=== PATIENT | female | born 1985 | race Caucasian/White ===

== ENCOUNTER 2018-11-10 16:43 | Emergency (ER) | payer BC, OTHER ==
[~2018-11-10] VITALS: Ht 154.9 cm; Wt 56.7 kg
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
[2018-11-10] MEDS ORDERED: IBUPROFEN 600 MG TABLET PO ONE (17:45)
[2018-11-10] MEDS ORDERED: IBUPROFEN 600 MG TABLET ONE ×2 (19:19→19:21)
--- NOTE | 2018-11-10 19:58 | NUR ---
Patient discharged to home in stable conditon WITH FAMILY TAKING PATIENT HOME. Written and verbal after care instructions given. Patient verbalizes understanding of instructions. WALKED OUT OF ER WITH NO DISTRESS NOTED
[2018-11-10 19:59] VITALS: BP 125/76
== END 2018-11-10 19:59 | disposition home or self-care (01) ==
LOC: ER 16:45
DX: S29.9XXA Unspecified injury of thorax, initial encounter (principal); V49.9XXA Car occupant (driver) (passenger) injured in unspecified traffic accident, initial encounter; Y93.89 Activity, other specified; Y92.89 Other specified places as the place of occurrence of the external cause; Y99.8 Other external cause status
CPT/HCPCS: 71120; A4663

== ENCOUNTER 2019-01-10 10:00 | Emergency (ER) | payer OTHER ==
[~2019-01-10] VITALS: Ht 175.3 cm; Wt 95.3 kg
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
--- NOTE | 2019-01-10 10:33 | NUR ---
Patient discharged to home in stable conditon. Written and verbal after care instructions given. Patient verbalizes understanding of instructions. ALL BELONGINGS W/ PT. PT SELF-AMBUALTED W/O DIFFICULTY.
[2019-01-10 10:34] VITALS: BP 122/72
== END 2019-01-10 10:34 | disposition home or self-care (01) ==
LOC: ER 10:01
DX: R21 Rash and other nonspecific skin eruption (principal)
CPT/HCPCS: A4663

== ENCOUNTER 2020-01-29 15:38 | Emergency (ER) | payer OTHER ==
[~2020-01-29] VITALS: Ht 154.9 cm; Wt 53.1 kg
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
[2020-01-29] MEDS ORDERED: KETOROLAC TROMETHAMINE 30 MG INJ IM ONE (16:15)
[2020-01-29] MEDS ORDERED: ACETAMINOPHEN ES 500 MG TABLET PO ONE (16:15)
[2020-01-29] MEDS ORDERED: KETOROLAC TROMETHAMINE 30 MG INJ ONE (16:21)
[2020-01-29] MEDS ORDERED: ACETAMINOPHEN ES 500 MG TABLET ONE (16:21)
[2020-01-29 16:29] LABS: *URINE HCG, QUAL NEGATIVE (NEGATIVE)
[2020-01-29 16:37] LABS: BASOPHILS % (AUTO) 0.5 % (0.0-2.0); EOSINOPHILS % (AUTO) 0.7 % (0.0-7.0); HEMATOCRIT 39.6 % (31.2-41.9); HEMOGLOBIN 12.9 g/dL (10.9-14.3); LYMPHOCYTES # (AUTO) 1.3 K/uL (20.0-40.0); LYMPHOCYTES % (AUTO) 22.7 % (20.5-51.5); MEAN CORPUSCULAR HEMOGLOBIN 30.4 uug (24.7-32.8); MEAN CORPUSCULAR HGB CONC 33 g/dL (32.3-35.6); MEAN CORPUSCULAR VOLUME 93.3 fL (75.5-95.3); MONOCYTES # (AUTO) 0.4 K/uL (2.0-10.0); MONOCYTES % (AUTO) 7.7 % (0.0-11.0); NEUTROPHILS # (AUTO) 3.9 K/uL (1.8-8.9); NEUTROPHILS % (AUTO) 68.4 % (38.5-71.5); PLATELET COUNT (AUTO) 210 K/uL (179-408); RED BLOOD CELL COUNT(AUTO) 4.25 MIL/uL (3.63-4.92); WHITE BLOOD COUNT (AUTO) 5.7 K/uL (3.8-11.8)
[2020-01-29 17:17] LABS: CREATININE 0.7 mg/dL (0.6-1.3); POTASSIUM 3.9 mmol/L (3.5-5.1)
--- NOTE | 2020-01-29 17:21 | NUR ---
PATIENT STATES HEADACHE HAS DIMINISHED.
[2020-01-29 17:22] LABS: BILIRUBIN,DIRECT 0.1 mg/dL (0.0-0.2); BILIRUBIN,TOTAL 0.5 mg/dL (0.2-1.0)
--- NOTE | 2020-01-29 17:38 | NUR ---
DC AND FOLLOW UP INSTRUCTIONS GIVEN AND EXPLAINED TO PATIENT WHO STATES SHE UNDERSTANDS ALL INSTRUCTIONS.
== END 2020-01-29 17:43 | disposition home or self-care (01) ==
LOC: ER 15:41
DX: G44.209 Tension-type headache, unspecified, not intractable (principal); Z87.828 Personal history of other (healed) physical injury and trauma
CPT/HCPCS: 36415; 70450; 80048; 80076; 84703; 85025; 96372; 99284; J1885; A4663; A9150

== ENCOUNTER 2020-05-01 21:06 | Emergency (ER) | payer OTHER ==
[~2020-05-01] VITALS: Ht 154.9 cm; Wt 49.9 kg
[2020-05-01] MEDS ORDERED: ONDANSETRON 4 MG/2 ML VIAL ONE ×2 (22:07→23:04)
[2020-05-01] MEDS ORDERED: PANTOPRAZOLE SODIUM 40 MG VIAL ONE (22:07)
[2020-05-01 22:11] LABS: BASOPHILS % (AUTO) 0.3 % (0.0-2.0); EOSINOPHILS # (AUTO) 0.1 K/uL (0.0-0.7); EOSINOPHILS % (AUTO) 0.7 % (0.0-7.0); HEMATOCRIT 36.5 % (31.2-41.9); HEMOGLOBIN 12.4 g/dL (10.9-14.3); LYMPHOCYTES # (AUTO) 2.3 K/uL (20.0-40.0); LYMPHOCYTES % (AUTO) 28.9 % (20.5-51.5); MEAN CORPUSCULAR HEMOGLOBIN 31.5 uug (24.7-32.8); MEAN CORPUSCULAR HGB CONC 34 g/dL (32.3-35.6); MEAN CORPUSCULAR VOLUME 92.4 fL (75.5-95.3); MONOCYTES # (AUTO) 0.6 K/uL (2.0-10.0); MONOCYTES % (AUTO) 7.7 % (0.0-11.0); NEUTROPHILS # (AUTO) 4.9 K/uL (1.8-8.9); NEUTROPHILS % (AUTO) 62.4 % (38.5-71.5); PLATELET COUNT (AUTO) 174 K/uL (179-408); RED BLOOD CELL COUNT(AUTO) 3.95 MIL/uL (3.63-4.92); WHITE BLOOD COUNT (AUTO) 7.9 K/uL (3.8-11.8)
[2020-05-01 22:13] LABS: CARBON DIOXIDE 27 mmol/L (21-32); CHLORIDE 104 mmol/L (98-107); CREATININE 0.8 mg/dL (0.6-1.3); GLUCOSE 116 mg/dL (74-106); POTASSIUM 3.3 mmol/L (3.5-5.1); UREA NITROGEN, BLOOD 15 mg/dL (7-18)
[2020-05-01] MEDS ORDERED: PANTOPRAZOLE SODIUM 40 MG VIAL IV ONE (22:15)
[2020-05-01] MEDS ORDERED: MECLIZINE HCL 25 MG TABLET PO ONE (22:15)
[2020-05-01] MEDS ORDERED: IV NORMAL SALINE 1000 ML BAG IV ONE (22:15)
[2020-05-01] MEDS ORDERED: ONDANSETRON 4 MG/2 ML VIAL IV ONE ×2 (22:15→23:00)
[2020-05-01 22:19] LABS: ALANINE AMINOTRANSFERASE 21 U/L (14-59); ALKALINE PHOSPHATASE 41 U/L (50-136); ASPARTATE AMINOTRANSFERASE 16 U/L (15-37); BILIRUBIN,DIRECT 0.1 mg/dL (0.0-0.2); BILIRUBIN,TOTAL 0.5 mg/dL (0.2-1.0); TOTAL PROTEIN, SERUM 7.3 g/dL (6.4-8.2)
[2020-05-01] MEDS ORDERED: MECLIZINE HCL 25 MG TABLET ONE (22:31)
--- NOTE | 2020-05-01 23:02 | NUR ---
Patient states after medication dizzines has not improved, had 2 episode of vomiting at this time Dr Holman into re eval patient.
--- NOTE | 2020-05-01 23:30 | NUR ---
Patient states nausea and dizzines has not improved with 2nd dose of medication. Dr Holman into re eval patient.
[2020-05-01] MEDS ORDERED: diphenhydrAMINE 50 MG/1 ML VIAL ONE (23:35)
[2020-05-01] MEDS ORDERED: METOCLOPRAMIDE HCL 10 MG/2 ML VIAL ONE (23:36)
[2020-05-01] MEDS ORDERED: diphenhydrAMINE 50 MG/1 ML VIAL IV ONE (23:45)
[2020-05-01] MEDS ORDERED: METOCLOPRAMIDE HCL 10 MG/2 ML VIAL IV ONE (23:45)
--- NOTE | 2020-05-02 00:12 | NUR ---
Patient states "I feel alot better now."
--- NOTE | 2020-05-02 00:15 | NUR ---
IV removed. Catheter intact and site benign. Pressure and 4x4 gauze applied to site. No bleeding noted.
--- NOTE | 2020-05-02 00:20 | NUR ---
will be driving patient home.
--- NOTE | 2020-05-02 00:20 | NUR ---
Patient discharged to home in stable condition. Written and verbal after care instructions given. Patient verbalizes understanding of instructions. Stressed follow up or return to ER for worsening s/s.
[2020-05-02 00:21] VITALS: BP 104/66
== END 2020-05-02 00:23 | disposition home or self-care (01) ==
LOC: ER 21:07
DX: R11.2 Nausea with vomiting, unspecified (principal); R51 Headache; E87.6 Hypokalemia; Z87.828 Personal history of other (healed) physical injury and trauma
CPT/HCPCS: 36415; 80048; 80076; 84702; 85025; 93005; 96361; 96374; 96375; 96376; 99284; C9113; J1200; J2405 ×2; J2765; A4663; J7030; J8597

== ENCOUNTER 2024-04-24 22:22 | Emergency (ER) | payer OTHER ==
[~2024-04-24] VITALS: Ht 154.9 cm; Wt 52.6 kg
--- NOTE | 2024-04-24 22:34 | NUR ---
ERMD at bedside. MSE in progress.
[2024-04-24] MEDS ORDERED: DIPH25TA25 PO (22:46)
[2024-04-24] MEDS ORDERED: PRED20TA PO (22:46)
[2024-04-24] MEDS ORDERED: diphenhydrAMINE 50 MG CAPSULE ONE (22:51)
[2024-04-24] MEDS ORDERED: predniSONE 50 MG TABLET ONE (22:51)
[2024-04-24] MEDS: diphenhydrAMINE 50 MG CAPSULE PO ONE (22:53)
[2024-04-24] MEDS: predniSONE 50 MG TABLET PO ONE (22:53)
--- NOTE | 2024-04-24 22:53 | NUR ---
Administered medication as prescribed. Assisted patient into comfortable position. safety and comfort measures in place. No S/S of distress noted.
[2024-04-24 23:06] VITALS: BP 118/70; TEMP 98; O2SAT 100
== END 2024-04-24 23:07 | disposition home or self-care (01) ==
LOC: ER 22:24
DX: L50.8 Other urticaria (principal); L27.0 Generalized skin eruption due to drugs and medicaments taken internally; Z98.890 Other specified postprocedural states; Z79.899 Other long term (current) drug therapy
CPT/HCPCS: 99283; Q0163; J7512; A4606; A4663